=== PATIENT | female | born 1950 | race Caucasian/White ===

== ENCOUNTER 2019-09-08 21:56 | Emergency (ER) | payer OTHER ==
[~2019-09-08] VITALS: Ht 170.2 cm; Wt 95.3 kg
[2019-09-08 21:59] VITALS: BP 198/93
[2019-09-08] MEDS ORDERED: VALTREX1000 MG PO (22:21)
[2019-09-08] MEDS ORDERED: ULTRAM 50MG TAB50 MG PO (22:23)
== END 2019-09-08 22:35 | disposition home or self-care (01) ==
LOC: ER 21:56
DX: B02.9 Zoster without complications (principal); I10 Essential (primary) hypertension; E11.9 Type 2 diabetes mellitus without complications

== ENCOUNTER 2019-10-17 16:18 | Emergency (ER) | payer OTHER ==
[~2019-10-17] VITALS: Ht 170.2 cm; Wt 98.4 kg
[~2019-10-17 16:18] MED LIST: ULTRAM 50MG TAB50 MG PO; VALTREX1000 MG PO
[2019-10-17] MEDS ORDERED: IBUPROFEN 600600 M1 PO (17:02)
[2019-10-17] MEDS ORDERED: ULTRAM 50MG TAB50 MG PO (17:02)
[2019-10-17] MEDS ORDERED: NORFLEX100 MG PO (17:02)
[2019-10-17] MEDS ORDERED: MEDROLDOSEPACK PO (17:02)
[2019-10-17 18:00] VITALS: BP 185/85
== END 2019-10-17 18:02 | disposition home or self-care (01) ==
LOC: ER 16:18
DX: S46.811A Strain of other muscles, fascia and tendons at shoulder and upper arm level, right arm, initial encounter (principal); I10 Essential (primary) hypertension; E11.9 Type 2 diabetes mellitus without complications; X58.XXXA Exposure to other specified factors, initial encounter; Y93.89 Activity, other specified; Y92.89 Other specified places as the place of occurrence of the external cause; Y99.8 Other external cause status

== ENCOUNTER 2020-11-08 06:18 | Emergency (ER) | payer OTHER ==
[~2020-11-08] VITALS: Ht 170.2 cm; Wt 95.3 kg
[~2020-11-08 06:18] MED LIST changes: +IBUPROFEN 600600 M1 PO; +MEDROLDOSEPACK PO; +NORFLEX100 MG PO
[2020-11-08] MEDS ORDERED: TELMISARTAN40 MG PO (06:37)
[2020-11-08] MEDS ORDERED: AMLODIPINE BESY10 MG PO (06:37)
[2020-11-08] MEDS ORDERED: ATENOLOL 50MG T50 M1 PO (06:37)
[2020-11-08] MEDS ORDERED: HYDROCHLOROTH12.5 M2 PO (06:38)
[2020-11-08 06:43] LABS: ABSOLUTE NEUTROPHILS 3.3 thou/uL (1.4-8.2); BASOPHILS 0.3 % (0.0-2.0); EOSINOPHILS 0.1 % (0.0-3.0); HEMATOCRIT 39.7 % (37.0-47.0); HEMOGLOBIN 12.9 gm/dL (12.0-15.0); MCH 28.6 pg (26.0-34.0); MCHC 32.6 g/dL (28.0-37.0); MCV 87.6 fL (80.0-100.0); MONOCYTES 9.5 % (1.0-8.0); PLATELET COUNT 108 thou/uL (150-400); POLYS 76.1 % (36.0-66.0); RBC 4.53 mil/uL (4.20-5.00); RDW 14.2 % (10.5-14.5); WBC 4.3 thou/uL (4.0-11.0)
[2020-11-08 07:00] LABS: ALBUMIN 3.7 g/dL (3.4-5.0); TOTAL BILIRUBIN 1.2 mg/dL (0.2-1.0); TOTAL PROTEIN 7.8 g/dL (6.4-8.2)
[2020-11-08 07:03] LABS: POTASSIUM 2.8 mmol/L (3.5-5.1)
--- NOTE | 2020-11-08 07:25 | EKG ---
[address] [address] ELECTROCARDIOGRAM REPORT Name: TIANNA CARRERA Room #: PRE M.R.#: [id number] Admission: Attend Phys: Discharge: Date of : 54 Report #: [id number] [facility] ED Test Date: 2020-11-08 Test Time: 06:26:48 Pat Name: TIANNA CARRERA Department: Room: Gender: F Access Clerk: ERIN : 1950 Requested By: Luca Salazar Order Number: [id number] MD: Nghia Jaimes Measurements Intervals [place] Rate: 73 P: 52 AL: 171 QRS: -41 QRSD: 98 T: -9 QT: 394 QTc: 435 Interpretive Statements Sinus rhythm Probable left atrial enlargement Left axis deviation Nonspecific T abnrm, anterolateral leads No previous ECG available for comparison Electronically Signed On 11-08-2020 7:25:29 BOTTOM TURNING LATHE TENDER by Nghia Jaimes [email or web address] <ELECTRONICALLY SIGNED> By: Nghia Jaimes MD, [facility] 11/08/2025 5 5 Nghia Jaimes MD, FACC /EPI
[2020-11-08] MEDS ORDERED: PROAIR HFA8.5 GM INH (07:30)
[2020-11-08] MEDS ORDERED: ZPAK PO (07:30)
[2020-11-08 09:59] VITALS: BP 164/78
== END 2020-11-08 10:05 | disposition home or self-care (01) ==
LOC: ER 06:18
PROVIDERS: Emergency Medicine
DX: U07.1 COVID-19 (principal); E87.6 Hypokalemia; I10 Essential (primary) hypertension; E11.9 Type 2 diabetes mellitus without complications; Z79.899 Other long term (current) drug therapy

== ENCOUNTER 2020-11-10 20:14 | Inpatient (IN) | payer OTHER ==
[~2020-11-10] VITALS: Ht 170.2 cm; Wt 95.3 kg
[~2020-11-10 20:14] MED LIST changes: +AMLODIPINE BESY10 MG PO; +ATENOLOL 50MG T50 M1 PO; +HYDROCHLOROTH12.5 M2 PO; +PROAIR HFA8.5 GM INH; +TELMISARTAN40 MG PO; +ZPAK PO
[2020-11-10 20:48] VITALS: BP 117/95; BP 177/95
[2020-11-10 21:47] LABS: ABSOLUTE NEUTROPHILS 4.1 thou/uL (1.4-8.2); BASOPHILS 0.8 % (0.0-2.0); HEMATOCRIT 39.4 % (37.0-47.0); HEMOGLOBIN 12.8 gm/dL (12.0-15.0); LYMPHOCYTES 7.4 % (24.0-44.0); MCH 28.5 pg (26.0-34.0); MCHC 32.5 g/dL (28.0-37.0); MCV 87.7 fL (80.0-100.0); MONOCYTES 4.1 % (1.0-8.0); PLATELET COUNT 119 thou/uL (150-400); POLYS 87.7 % (36.0-66.0); RBC 4.49 mil/uL (4.20-5.00); RDW 14.6 % (10.5-14.5); WBC 4.6 thou/uL (4.0-11.0)
[2020-11-10 22:06] LABS: ALBUMIN 3.3 g/dL (3.4-5.0); ANION GAP 6 mmol/L (7-16); BUN 10 mg/dL (7-18); CHLORIDE 96 mmol/L (98-107); CO2 32 mmol/L (21-32); CREATININE 0.9 mg/dL (0.6-1.0); GLUCOSE 127 mg/dL (74-106); SGOT 38 U/L (15-37); SGPT 33 U/L (30-65); SODIUM 134 mmol/L (136-145); TOTAL PROTEIN 7.3 g/dL (6.4-8.2); TROPONIN-I <0.06 ng/mL (<0.06)
[2020-11-10 22:07] LABS: POTASSIUM 2.8 mmol/L (3.5-5.1)
[2020-11-10 23:10] VITALS: BP 158/73
[2020-11-10 23:27] LABS: URINE BILIRUBIN NEGATIVE (Negative); URINE BLOOD NEGATIVE (Negative); URINE CLARITY CLEAR; URINE COLOR YELLOW; URINE GLUCOSE-RANDOM* NEGATIVE (Negative); URINE KETONES NEGATIVE (Negative); URINE LEUKOCYTES-REFLEX NEGATIVE (Negative); URINE NITRITE-REFLEX NEGATIVE (Negative); URINE PROTEIN (DIPSTICK) TRACE (Negative); URINE SPECIFIC GRAVITY 1.015 (1.005-1.035); URINE UROBILINOGEN 0.2 E.U./dl (0.2-1.0)
[2020-11-10 23:46] VITALS: BP 136/78
[2020-11-11 00:01] VITALS: BP 131/89
[2020-11-11] MEDS ORDERED: LIPITOR40 MG PO (00:47)
[2020-11-11 03:51] VITALS: BP 126/76
[2020-11-11 07:36] VITALS: BP 144/87
[2020-11-11 10:35] LABS: CALCIUM 8.7 mg/dL (8.5-10.1); CREATININE 1.1 mg/dL (0.6-1.0); POTASSIUM 3.9 mmol/L (3.5-5.1)
[2020-11-11 10:57] LABS: HEMATOCRIT 38.2 % (37.0-47.0); HEMOGLOBIN 12.4 gm/dL (12.0-15.0); MCH 28.7 pg (26.0-34.0); MCHC 32.4 g/dL (28.0-37.0); MCV 88.5 fL (80.0-100.0); RBC 4.31 mil/uL (4.20-5.00); RDW 14.3 % (10.5-14.5); WBC 5.2 thou/uL (4.0-11.0)
[2020-11-11 12:04] VITALS: BP 132/86
[2020-11-11 16:19] VITALS: BP 143/75
[2020-11-11 19:55] VITALS: BP 128/61
[2020-11-12 04:45] VITALS: BP 147/84
[2020-11-12 05:32] LABS: BASOPHILS 0.1 % (0.0-2.0); HEMATOCRIT 38.8 % (37.0-47.0); HEMOGLOBIN 12.7 gm/dL (12.0-15.0); LYMPHOCYTES 5.6 % (24.0-44.0); MCH 28.7 pg (26.0-34.0); MCHC 32.7 g/dL (28.0-37.0); MCV 87.8 fL (80.0-100.0); MONOCYTES 3.8 % (1.0-8.0); PLATELET COUNT 143 thou/uL (150-400); POLYS 90.5 % (36.0-66.0); RBC 4.42 mil/uL (4.20-5.00); RDW 14.3 % (10.5-14.5); WBC 7.7 thou/uL (4.0-11.0)
[2020-11-12 05:44] LABS: FIBRINOGEN 389.2 mg/dL (210-360); INR 1.1; PROTIME 10.8 Seconds (9.3-11.4)
[2020-11-12 05:54] LABS: CALCIUM 9.4 mg/dL (8.5-10.1); CREATININE 1.1 mg/dL (0.6-1.0); TOTAL BILIRUBIN 0.6 mg/dL (0.2-1.0); TOTAL PROTEIN 7.3 g/dL (6.4-8.2)
[2020-11-12 06:00] LABS: POTASSIUM 2.9 mmol/L (3.5-5.1)
--- NOTE | 2020-11-12 07:26 | EKG ---
[address] [address] ELECTROCARDIOGRAM REPORT Name: TIANNA CARRERA Room #: 355-P ADM IN M.R.#: [id number] Admission: 11/10/20 Attend Phys: Camilo Mora MD Discharge: Date of : 54 Report #: [id number] [facility] ED Test Date: 2020-11-10 Test Time: 21:22:41 Pat Name: TIANNA CARRERA Department: Room: [facility] Gender: F Heel Seat Laster: : 1950 Requested By: Rashid Shrestha Order Number: [id number] MD: Nghia Jaimes Measurements Intervals [place] Rate: 80 P: 38 [place]: 152 QRS: -46 QRSD: 92 T: -19 QT: 369 QTc: 426 Interpretive Statements Sinus rhythm LAD, consider left anterior fascicular block Probable left ventricular hypertrophy Borderline T abnormalities, diffuse leads Compared to ECG 11/08/2020 06:26:48 T-wave abnormality now present Left-axis deviation no longer present Electronically Signed On 11-12-2020 7:25:49 INSTALLATION ENGINEER by Nghia Jaimes [email or web address] <ELECTRONICALLY SIGNED> By: Nghia Jaimes MD, FAC 11/12/20724 21 21 Nghia Jaimes MD, [facility] /EPI
[2020-11-12 11:40] VITALS: BP 157/83
[2020-11-12 16:17] VITALS: BP 149/83
[2020-11-12 19:46] VITALS: BP 137/73
[2020-11-13 05:44] VITALS: BP 120/68
[2020-11-13 06:40] LABS: ABSOLUTE NEUTROPHILS 10.9 thou/uL (1.4-8.2); HEMATOCRIT 40.4 % (37.0-47.0); HEMOGLOBIN 12.9 gm/dL (12.0-15.0); LYMPHOCYTES 3.4 % (24.0-44.0); MCH 28.4 pg (26.0-34.0); MCHC 32.1 g/dL (28.0-37.0); MCV 88.5 fL (80.0-100.0); MONOCYTES 1.9 % (1.0-8.0); PLATELET COUNT 186 thou/uL (150-400); POLYS 94.7 % (36.0-66.0); RBC 4.56 mil/uL (4.20-5.00); RDW 14.4 % (10.5-14.5); WBC 11.5 thou/uL (4.0-11.0)
[2020-11-13 06:53] LABS: ALBUMIN 2.9 g/dL (3.4-5.0); CALCIUM 9.6 mg/dL (8.5-10.1); CREATININE 1.4 mg/dL (0.6-1.0); POTASSIUM 3.4 mmol/L (3.5-5.1); TOTAL BILIRUBIN 0.7 mg/dL (0.2-1.0); TOTAL PROTEIN 7.8 g/dL (6.4-8.2)
[2020-11-13 15:16] VITALS: BP 127/73
[2020-11-13 19:39] VITALS: BP 138/66
[2020-11-14 02:54] VITALS: BP 130/75
[2020-11-14 07:43] VITALS: BP 147/76
[2020-11-14 10:15] LABS: ALBUMIN 2.8 g/dL (3.4-5.0); CALCIUM 9.5 mg/dL (8.5-10.1); CREATININE 1.2 mg/dL (0.6-1.0); DIRECT BILIRUBIN 0.3 mg/dL (<0.1-0.2); PHOSPHORUS 4.2 mg/dL (2.5-4.9); TOTAL BILIRUBIN 0.6 mg/dL (0.2-1.0); TOTAL PROTEIN 6.7 g/dL (6.4-8.2)
[2020-11-14 15:21] VITALS: BP 137/83
[2020-11-14 20:06] VITALS: BP 145/85
[2020-11-15 06:41] LABS: ALBUMIN 2.5 g/dL (3.4-5.0); CALCIUM 9.4 mg/dL (8.5-10.1); DIRECT BILIRUBIN 0.2 mg/dL (<0.1-0.2); PHOSPHORUS 3.5 mg/dL (2.5-4.9); POTASSIUM 3.7 mmol/L (3.5-5.1); TOTAL BILIRUBIN 0.6 mg/dL (0.2-1.0); TOTAL PROTEIN 6.9 g/dL (6.4-8.2)
[2020-11-15 08:55] VITALS: BP 147/76
[2020-11-15 17:38] VITALS: BP 146/84
[2020-11-15 19:57] VITALS: BP 156/76
[2020-11-16 04:03] VITALS: BP 155/77
[2020-11-16 04:48] LABS: ALBUMIN 2.7 g/dL (3.4-5.0); CALCIUM 9.5 mg/dL (8.5-10.1); CREATININE 1.2 mg/dL (0.6-1.0); DIRECT BILIRUBIN 0.3 mg/dL (<0.1-0.2); TOTAL BILIRUBIN 0.7 mg/dL (0.2-1.0); TOTAL PROTEIN 6.4 g/dL (6.4-8.2)
[2020-11-16 07:59] VITALS: BP 148/90
[2020-11-16 14:13] VITALS: BP 148/90
[2020-11-16 15:44] VITALS: BP 166/98
[2020-11-16 20:00] VITALS: BP 157/80
[2020-11-17 04:58] VITALS: BP 141/83
[2020-11-17 07:17] VITALS: BP 138/70
[2020-11-17 15:16] VITALS: BP 143/84
[2020-11-17 20:24] VITALS: BP 146/78
[2020-11-18 04:31] LABS: ABSOLUTE NEUTROPHILS 7.3 thou/uL (1.4-8.2); HEMATOCRIT 38.6 % (37.0-47.0); HEMOGLOBIN 12.7 gm/dL (12.0-15.0); LYMPHOCYTES 5.4 % (24.0-44.0); MCH 28.7 pg (26.0-34.0); MCHC 32.8 g/dL (28.0-37.0); MCV 87.5 fL (80.0-100.0); MONOCYTES 3.1 % (1.0-8.0); PLATELET COUNT 236 thou/uL (150-400); POLYS 91.5 % (36.0-66.0); RBC 4.42 mil/uL (4.20-5.00); RDW 14.1 % (10.5-14.5); WBC 7.9 thou/uL (4.0-11.0)
[2020-11-18 04:34] VITALS: BP 122/62
[2020-11-18 04:54] LABS: ALBUMIN 2.4 g/dL (3.4-5.0); CALCIUM 9.3 mg/dL (8.5-10.1); CREATININE 1.2 mg/dL (0.6-1.0); MAGNESIUM 2.2 mg/dL (1.8-2.4); POTASSIUM 4.2 mmol/L (3.5-5.1); TOTAL BILIRUBIN 0.5 mg/dL (0.2-1.0); TOTAL PROTEIN 6.2 g/dL (6.4-8.2)
[2020-11-18 07:30] VITALS: BP 167/87
[2020-11-18 17:38] VITALS: BP 146/76
[2020-11-18 22:35] VITALS: BP 155/74
[2020-11-19 04:03] VITALS: BP 125/68
[2020-11-19 07:33] VITALS: BP 124/67
[2020-11-19 15:07] VITALS: BP 142/74
[2020-11-19 16:46] VITALS: BP 148/90
[2020-11-19 19:48] VITALS: BP 146/76
[2020-11-20 03:55] VITALS: BP 132/61
[2020-11-20 07:35] VITALS: BP 140/70
[2020-11-20 15:20] VITALS: BP 121/66
[2020-11-20 19:24] VITALS: BP 149/75
[2020-11-21 01:06] LABS: GLYCOHEMOGLOBIN (HGB A1C) 7.2 % (4.8-5.6)
[2020-11-21 03:43] VITALS: BP 127/66
[2020-11-21 07:36] VITALS: BP 137/75
[2020-11-21 10:51] VITALS: BP 148/90
[2020-11-21 15:24] VITALS: BP 121/69
[2020-11-21 19:31] VITALS: BP 146/77
[2020-11-22 04:30] VITALS: BP 112/68
[2020-11-22 07:38] VITALS: BP 129/79
[2020-11-22] MEDS ORDERED: PREDNISONE 20 M20 MG PO (11:00)
[2020-11-22] MEDS ORDERED: VITAMIN D325 MC1 PO (11:00)
[2020-11-22] MEDS ORDERED: ACIDOPHILUS1 EAC4 PO (11:00)
[2020-11-22] MEDS ORDERED: TESSALON PERLE100 MG PO (11:00)
[2020-11-22] MEDS ORDERED: VITAMIN C1000 MG PO (11:00)
[2020-11-22] MEDS ORDERED: IPRAT-ALBUT 0.5-3 ML INH (11:00)
[2020-11-22] MEDS ORDERED: TRAZODONE HCL50 MG PO (11:00)
[2020-11-22] MEDS ORDERED: ZINC SULFATE 2220 MG PO (11:00)
[2020-11-22] MEDS ORDERED: VITAMIN B-1100 M2 PO (11:00)
[2020-11-22] MEDS ORDERED: PEPCID20 MG PO (11:00)
[2020-11-22 12:14] VITALS: BP 129/79
[2020-11-22 12:17] VITALS: BP 148/90
== END 2020-11-22 14:15 | disposition home health service (06) | DRG 177 ==
LOC: ER 20:14 → EROBS 23:04 → 3W 23:04
PROVIDERS: Internal Medicine; Nurse Practitioner Family; Physician Assistant; Specialist; ADMIT Hospitalist; ATTEND Hospitalist
PROC: XW033E5 Introduction of Remdesivir Anti-infective into Peripheral Vein, Percutaneous Approach, New Technology Group 5 (ICD-10-PCS; 2020-11-12)
PROC: 5A0935A Assistance with Respiratory Ventilation, Less than 24 Consecutive Hours, High Flow/Velocity Cannula (ICD-10-PCS; principal; 2020-11-17)
DX: U07.1 COVID-19 (principal); J96.01 Acute respiratory failure with hypoxia; R65.11 Systemic inflammatory response syndrome (SIRS) of non-infectious origin with acute organ dysfunction; J12.82 Pneumonia due to coronavirus disease 2019; N17.9 Acute kidney failure, unspecified; E46 Unspecified protein-calorie malnutrition; J98.11 Atelectasis; D69.6 Thrombocytopenia, unspecified; I10 Essential (primary) hypertension; E11.9 Type 2 diabetes mellitus without complications; E87.6 Hypokalemia; E78.5 Hyperlipidemia, unspecified; Z68.32 Body mass index [BMI] 32.0-32.9, adult; Z79.899 Other long term (current) drug therapy
CPT/HCPCS: 10779; 10879

== ENCOUNTER → 2020-12-03 | Outpatient (CLI) | payer OTHER ==
[~2020-12-03] MED LIST changes: +ACIDOPHILUS1 EAC4 PO; +IPRAT-ALBUT 0.5-3 ML INH; +LIPITOR40 MG PO; +PEPCID20 MG PO; +PREDNISONE 20 M20 MG PO; +TESSALON PERLE100 MG PO; +TRAZODONE HCL50 MG PO; +VITAMIN B-1100 M2 PO; +VITAMIN C1000 MG PO; +VITAMIN D325 MC1 PO; +ZINC SULFATE 2220 MG PO
== END ==
LOC: ULTRA 15:39
PROVIDERS: ATTEND Neuromusculoskeletal Medicine & OMM
DX: R60.0 Localized edema (principal)

== ENCOUNTER 2020-12-11 19:28 | Inpatient (IN) | payer OTHER ==
[~2020-12-11] VITALS: Ht 172.7 cm; Wt 90.7 kg
[2020-12-11 19:31] VITALS: BP 163/83
[2020-12-11 20:04] LABS: ABSOLUTE NEUTROPHILS 1.8 thou/uL (1.4-8.2); EOSINOPHILS 1.6 % (0.0-3.0); HEMATOCRIT 36.4 % (37.0-47.0); HEMOGLOBIN 11.9 gm/dL (12.0-15.0); LYMPHOCYTES 25.2 % (24.0-44.0); MCHC 32.8 g/dL (28.0-37.0); MCV 88.5 fL (80.0-100.0); MONOCYTES 14.8 % (1.0-8.0); PLATELET COUNT 206 thou/uL (150-400); POLYS 57.4 % (36.0-66.0); RBC 4.11 mil/uL (4.20-5.00); RDW 15.8 % (10.5-14.5); WBC 3.1 thou/uL (4.0-11.0)
[2020-12-11 20:24] LABS: ALBUMIN 3.3 g/dL (3.4-5.0); ANION GAP 7 mmol/L (7-16); BUN 9 mg/dL (7-18); CALCIUM 9.3 mg/dL (8.5-10.1); CHLORIDE 100 mmol/L (98-107); CO2 32 mmol/L (21-32); CREATININE 1.1 mg/dL (0.6-1.0); GLUCOSE 124 mg/dL (74-106); SGOT 17 U/L (15-37); SGPT 17 U/L (30-65); SODIUM 139 mmol/L (136-145); TOTAL BILIRUBIN 1.3 mg/dL (0.2-1.0); TOTAL PROTEIN 7.1 g/dL (6.4-8.2); TROPONIN-I <0.06 ng/mL (<0.06)
[2020-12-11 20:25] LABS: POTASSIUM 2.5 mmol/L (3.5-5.1)
[2020-12-11] MEDS ORDERED: HYDROCHLOROTHIA25 M1 PO (20:42)
[2020-12-11] MEDS ORDERED: METFORMIN HCL500 M3 PO (21:26)
[2020-12-11 22:20] VITALS: BP 159/79
[2020-12-11 22:50] VITALS: BP 161/59
[2020-12-11 22:57] VITALS: BP 155/85
[2020-12-11 23:04] LABS: PROTIME 11.3 Seconds (9.3-11.4)
[2020-12-12] MEDS ORDERED: NORVASC10 MG PO (01:08)
--- NOTE | 2020-12-12 01:12 | NUR ---
PT PRESENTED FROM HOME TO ED. PT CALLED 911 CONTINUED AND INCREASED SOA. LOW SATURATION ON ROOM AIR NOTED BY EMS. PT PREVIOUSLY AT [facility] FOR COVID DCD ON 11/22. PT DID SEE PCP ON 12/03 TO R/O DVT WHICH WAS NEGATIVE. . CT TODAY SHOWED POSITIVE PE, DDIMER ELEVATED. HEPARIN DRIP INITIATED, POTTASIUM PROVIDED IV. PT STATED SHE TAKES HCTZ AND HAS HAD LOOSE STOOL AT HOME, TAKES TAJIK VICKERS A LAXATIVE. METFORMIN ON HOLD DUE TO CONTRAST FOR 48HRS. SOA AND INCREASE COUGHING WHEN AMBULATING. STEADY GAIT. PRN O2 FOR COMFORT. PT VERBALIZED CALLING FOR ASSISTANCE WHEN NEEDED FOR ADLS OR AMBULATION.
--- NOTE | 2020-12-12 01:35 | NUR ---
PT REPORTING EPISODES OF INCREASED SOA, NOT ABLE TO IDENTIFY TRIGGERS TO INCREASE IN SOA, SUCH COUGHING, AMBULATING. STATED SHE IS THINKING ABOUT THE BLOOD CLOTS AND GETTING NERVOUS. ASKED IF PROVIDER COULD BE CALLED FOR PRN. PROVIDER PAGED.
[2020-12-12 05:38] LABS: HEMATOCRIT 36.7 % (37.0-47.0); HEMOGLOBIN 12.1 gm/dL (12.0-15.0); MCHC 32.9 g/dL (28.0-37.0); MCV 88.4 fL (80.0-100.0); RBC 4.15 mil/uL (4.20-5.00); RDW 15.6 % (10.5-14.5); WBC 3.4 thou/uL (4.0-11.0)
[2020-12-12 05:58] VITALS: BP 139/82
[2020-12-12 05:59] LABS: ALBUMIN 3.2 g/dL (3.4-5.0); POTASSIUM 3.4 mmol/L (3.5-5.1)
--- NOTE | 2020-12-12 07:15 | EKG ---
[place] [address] [facility] [place] [address] ELECTROCARDIOGRAM REPORT Name: TIANNA CARRERA Room #: 353-P ADM IN M.R.#: [id number] Admission: 12/11/20 Attend Phys: Joseph Thurman MD Discharge: Date of : 54 Report #: [id number] [facility] ED Test Date: 2020-12-11 Test Time: 19:52:04 Pat Name: TIANNA CARRERA Department: Room: [facility] Gender: F Nonprofit Financial Controller: tbarnes2 : 1950 Requested By: Anastasiia Shah Order Number: [id number] MD: Nghia Jaimes Measurements Intervals [place] Rate: 78 P: 48 [place]: 156 QRS: -30 QRSD: 91 T: -21 QT: 387 QTc: 441 Interpretive Statements Sinus rhythm Left ventricular hypertrophy Borderline T abnormalities, diffuse leads Compared to ECG 11/10/2020 21:22:41 No significant changes Electronically Signed On 12-12-2020 7:14:50 PUNCH CARD OPERATOR by Nghia Jaimes [email or web address] <ELECTRONICALLY SIGNED> By: Nghia Jaimes MD, [facility] 12/12/20713 51 51 Nghia Jaimes MD, FACC /EPI
[2020-12-12] MEDS ORDERED: ELIQUIS5 M1 PO (10:41)
[2020-12-12 11:49] VITALS: BP 143/92
[2020-12-12 12:34] VITALS: BP 143/92
--- NOTE | 2020-12-12 14:10 | NUR ---
INITIAL ASSESSMENT/DISCHARGE NOTE: Received consult. EVELIA reviewed chart and spoke with nursing and attending physician. Pt was admitted from home due to PE. Pt placed in Enhanced Isolation. Pt had positive COVID test on 11/08/2020. Pt was discharge home from [facility] on 11/22 with home O2 [facility]. Pt to be started on Eliquis and will discharge home later today. EVELIA spoke with pt via phone. Introduced role of SW. Pt is alert/orientated x 4. Pt lives at home with her mother and is normally independent with ADLs. Pt is currently on service with HH and will resume HH when discharged home. Pt's PCP is Dr. Jacky Alfaro at [facility]. EVELIA discussed new prescription for Eliquis. Pt is aware and states that she uses the [facility] on [address] in [place]. EVELIA placed call to the [facility] to check coverage for Eliquis. Pt has a $8.40 copay for the starter kit, which will be ordered today and available for pt to scrap picker tomorrow around 1300. EVELIA provided Eliquis prescription discount cards to pt's nurse for pt to take to her pharmacy. EVELIA faxed info and [facility] summary/[facility]. Confirmed info was received with to contact pt to resume services. Contact info for HH placed in pt's discharge summary. Pt's family will be able to provide transportation home. No additioal EVELIA needs identified at this time, but is available to assist should needs arise.
[2020-12-12] MEDS ORDERED: KLOR-CON M2020 MEQ PO (14:48)
[2020-12-12 15:02] VITALS: BP 143/92
[2020-12-12 15:09] VITALS: BP 141/82
--- NOTE | 2020-12-12 16:36 | NUR ---
assumed care of pt at 0700. pt aox4 in no acute distress. maintains spo2 on room air. soa w/ activity. heparin gtt d/c'd per physician - to start on eliquis bid. ok to discharge per physician after second dose given early per physician request. wcm.
--- NOTE | 2020-12-13 08:03 | HC ---
[facility] [place] [address] CONSULTATION Name: TIANNA CARRERA Room #: 353-P [facility] IN M.R.#: [id number] Admission: 12/11/20 Attend Phys: Joseph Thurman MD Discharge: 12/12/20 Date of : 54 Report #: [id number] THIS REPORT FOR: cc: Germán Vo,Diallo Gusman MD ~ HISTORY OF PRESENT ILLNESS: The patient is a very pleasant 70-year-old female from the [facility] area, who was found to be COVID positive in 11/09, was admitted on 11/10 for COVID pneumonia, received appropriate therapy and then went home on 11/22. She reports that she has had some chronic leg swelling for 50 years, might have been slightly worse, but she notes more dyspnea about a day or two before her admission yesterday. Here at the hospital, her CAT scan showed what appears to be several small secondary branch right lower lobe pulmonary emboli. She is currently receiving heparin. She denies any recent trauma cellulitis use of hormones, prolonged immobility other than the recent hospital stay. Her family history appears to be negative for clotting, though she has a brother who has likely had some type of vascular difficulty about age 50, but she also had been a smoker in the past. At this time, the patient denies headache. Has had what she describes as some mild dizziness, also sounds like she has had some dyspnea or shortness of air since perhaps August or September of 2020. No mouth sores. Does have occasional blood-tinged from when she blows her nose. No hearing difficulties. No swallowing difficulties. No breast masses, no nipple discharge, no coughing up of blood, no change in bowel habits. Sounds like she has had some loose bowels for about 3 or 4 days, had not had before. No blood in her urine or stool. No dysuria. No skin rash. Does have the chronic swelling of her ankles and feet up to about 2/3 up on her calves. Weight is maybe down 10 pounds, but she is not sure if she has weighed herself recently, but her cloths are maybe a little bit looser in the last month or 2 since she got out of the hospital, has not quite back to eating well yet. FAMILY HISTORY: No one else with clots per se. SOCIAL HISTORY: Retired, used to work as a trust manager at a [employer]. Nonsmoker, nondrinker, no street drugs. Does have a 2.5 year old Zarina Tzu dog at home and that is her entry level assistant manager. MEDICATIONS: At this time, in the hospital currently include apixaban 5 mg b.i.d., Zosyn 3.375 grams IV q. 8 hours, levofloxacin q. 24, atorvastatin calcium 40 mg at bedtime, amlodipine 10 daily, lactobacillus 1 cap daily, vitamin D 2000 units daily, vitamin C 500 mg daily, thiamine 100 mg daily, famotidine 20 b.i.d., zinc sulfate 220 mg daily, atenolol 50 daily, guaifenesin 1200 b.i.d., insulin on a sliding scale, ipratropium and albuterol respiratory therapies q. 4, IV fluids, trazodone 50 mg at bedtime p.r.n., dexamethasone 6 mg daily IV, magnesium and other electrolyte replacement protocol drugs available, MiraLax p.r.n. Note that she is beginning apixaban 10 b.i.d. for the first 14 doses, but I am not sure that actually is started yet. [facility] [address] [place] [address] CONSULTATION Name: TIANNA CARRERA Room #: 353-P [facility] IN Willy#: [id number] Admission: 12/11/20 Attend Phys: Joseph Thurman MD Discharge: 12/12/20 Date of : 54 Report #: [id number] PHYSICAL EXAMINATION: GENERAL: The patient appears her stated age. VITAL SIGNS: Height is 5 feet 8 inches 172.7 ___, weight is 200 pounds or 90.8 kilograms. Blood pressure 139/82, O2 sat 99%, respirations 20, pulse 74, temperature 98. MOOD: She is alert, pleasant, conversant. NEUROLOGIC: Speech and thought pattern normal. Moving extremities appropriately. LUNGS: Mostly clear, may be some very soft rhonchi centrally that clear. HEART: Regular rate. LYMPHATICS: No enlarged lymph nodes in the supraclavicular, cervical, axillary or inguinal region. ABDOMEN: Slightly obese. No masses. EXTREMITIES: He does have some mild chronic-appearing lymphedema as the skin is stretched, not taut up to about 2/[address] up the calf. LABORATORY DATA: Shows BUN of 8, creatinine 1.0. Recent liver functions normal including AST, total bilirubin is normal at 1.0, alkaline phosphatase 58, SGPT 17, albumin 3.2, LDH had been 282 back in November. Recent baseline INR had been 1.0. No baseline APTT drawn before beginning of heparin. D-dimer on admit elevated at 4.58. White count 3.4, hemoglobin 12.1, MCV 88.4, platelets 206. Differential nonacute. Ferritin back in November was elevated at 650. CAT scan report describes filling defects within the right pulmonary artery secondary branches are present, most notable in the right lower lobe, partially occlusive. There is no central pulmonary embolism or left-sided pulmonary arterial filling defect. Heart size is mildly enlarged with no pericardial effusion. No acute thoracic osseous abnormality. Patchy ground glass opacities in both lungs peripherally, greatest in the lower lobes and lingula. The patient also had ultrasound of lower extremity done as an outpatient on the 12/03 that was normal. Repeat test is pending. ASSESSMENT AND PLAN: 1. Right-sided lower pulmonary emboli in the secondary branches. We would most likely consider this provoked related to recent COVID pneumonia and hypercoagulability. Note that factor V Leiden, protein C and protein S are pending. The patient should probably receive at least 6 months of anticoagulation. We would then consider checking after 2 days off therapy of DRVVT, hexagonal phase phospholipid, cardiolipin antibodies and beta 2 glycoprotein [address] the patient back on anticoagulant while awaiting those results. If they are unremarkable, then one can probably consider that the safest approach will be stopping anticoagulant and observe. If she has abnormality on her tests, then they will need to be repeated 3 months later after additional anticoagulation to see if they are persistently positive. We will also await results of upper and lower extremity venous Dopplers. [address] [address] CONSULTATION Name: TIANNA CARRERA Room #: 353-P DIS IN M.R.#: [id number] Admission: 12/11/20 Attend Phys: Joseph Thurman MD Discharge: 12/12/20 Date of : 54 Report #: [id number] 2. Dyspnea preceding COVID pneumonia. We will ask Pulmonary to see the patient more for outpatient followup to see if additional testing is warranted. 3. Chronic lower extremity swelling for 50+ years. Consider outpatient consult with the lymphedema therapist for help with management. 4. Recent history of COVID pneumonia. Defer management to others. 5. Diabetes type 2. Management per others. 6. Hypertension. Management per others. 7. Hyperlipidemia. Management per others. 8. Obesity. Encouraged weight loss. 9. Chart report of shingles. Management per others. Does not appear to be symptomatic at this time. 10. Chart history of brachial plexus neuropathy. Defer management to others. We will follow with you. <ELECTRONICALLY SIGNED> By: Diallo Swann MD 12/13/20 0803 [id number] Diallo Swann MD /nt
== END 2020-12-12 19:25 | disposition home health service (06) | DRG 175 ==
LOC: ER 19:28 → 3W 22:11 → EROBS 22:11 → 3W 22:41
PROVIDERS: Emergency Medicine; Nurse Practitioner Family; ADMIT Hospitalist; ATTEND Hospitalist
DX: I26.99 Other pulmonary embolism without acute cor pulmonale (principal); J12.82 Pneumonia due to coronavirus disease 2019; U07.1 COVID-19; R65.10 Systemic inflammatory response syndrome (SIRS) of non-infectious origin without acute organ dysfunction; I10 Essential (primary) hypertension; E87.6 Hypokalemia; E78.5 Hyperlipidemia, unspecified; I89.0 Lymphedema, not elsewhere classified; E66.9 Obesity, unspecified; E11.9 Type 2 diabetes mellitus without complications; B02.9 Zoster without complications; G54.0 Brachial plexus disorders; Z79.4 Long term (current) use of insulin; Z86.16 Personal history of COVID-19; Z88.8 Allergy status to other drugs, medicaments and biological substances; Z68.30 Body mass index [BMI] 30.0-30.9, adult
CPT/HCPCS: 10879

== ENCOUNTER → 2020-12-21 | Outpatient (CLI) | payer OTHER ==
[~2020-12-21] MED LIST changes: +ELIQUIS5 M1 PO; +HYDROCHLOROTHIA25 M1 PO; +KLOR-CON M2020 MEQ PO; +METFORMIN HCL500 M3 PO; +NORVASC10 MG PO
== END ==
LOC: SJCVC 12:45
PROVIDERS: ATTEND Internal Medicine
DX: E78.00 Pure hypercholesterolemia, unspecified (principal); I10 Essential (primary) hypertension; E11.9 Type 2 diabetes mellitus without complications; E78.5 Hyperlipidemia, unspecified; Z86.73 Personal history of transient ischemic attack (TIA), and cerebral infarction without residual deficits; Z88.1 Allergy status to other antibiotic agents; Z79.899 Other long term (current) drug therapy; Z79.84 Long term (current) use of oral hypoglycemic drugs

== ENCOUNTER → 2020-12-24 | Outpatient (CLI) | payer OTHER | LOC: SJCVCIMAG 07:18 | PROVIDERS: ATTEND Internal Medicine | DX: I08.1 Rheumatic disorders of both mitral and tricuspid valves (principal); I11.9 Hypertensive heart disease without heart failure; R06.00 Dyspnea, unspecified; E11.9 Type 2 diabetes mellitus without complications; E78.5 Hyperlipidemia, unspecified; R00.2 Palpitations; K21.9 Gastro-esophageal reflux disease without esophagitis; Z86.16 Personal history of COVID-19; Z86.711 Personal history of pulmonary embolism; Z88.1 Allergy status to other antibiotic agents; Z79.899 Other long term (current) drug therapy ==

== ENCOUNTER → 2021-03-05 | Outpatient (CLI) | payer OTHER | LOC: SJCVC 10:00 | PROVIDERS: ATTEND Internal Medicine | DX: I10 Essential (primary) hypertension (principal); E11.9 Type 2 diabetes mellitus without complications; E78.5 Hyperlipidemia, unspecified; R06.02 Shortness of breath; Z86.16 Personal history of COVID-19; Z79.84 Long term (current) use of oral hypoglycemic drugs; Z79.899 Other long term (current) drug therapy; Z88.8 Allergy status to other drugs, medicaments and biological substances ==

== ENCOUNTER → 2021-04-02 | Outpatient (CLI) | payer OTHER | LOC: SJCVC 13:00 | PROVIDERS: ATTEND Internal Medicine | DX: I10 Essential (primary) hypertension (principal); R06.02 Shortness of breath; E11.9 Type 2 diabetes mellitus without complications; E78.5 Hyperlipidemia, unspecified; R60.0 Localized edema; Z88.1 Allergy status to other antibiotic agents; Z88.8 Allergy status to other drugs, medicaments and biological substances; Z79.84 Long term (current) use of oral hypoglycemic drugs; Z79.899 Other long term (current) drug therapy; Z86.718 Personal history of other venous thrombosis and embolism; Z86.16 Personal history of COVID-19; Z86.711 Personal history of pulmonary embolism ==

== ENCOUNTER → 2021-04-30 | Outpatient (CLI) | payer OTHER | LOC: SJCVC 13:25 | PROVIDERS: ATTEND Internal Medicine | DX: I10 Essential (primary) hypertension (principal); E11.9 Type 2 diabetes mellitus without complications; E78.5 Hyperlipidemia, unspecified; R55 Syncope and collapse; Z86.16 Personal history of COVID-19; Z88.8 Allergy status to other drugs, medicaments and biological substances; Z79.84 Long term (current) use of oral hypoglycemic drugs; Z79.899 Other long term (current) drug therapy ==

== ENCOUNTER → 2021-06-20 | Outpatient (CLI) | payer OTHER | LOC: SJCVC 13:07 | PROVIDERS: ATTEND Internal Medicine | DX: E78.00 Pure hypercholesterolemia, unspecified (principal); I10 Essential (primary) hypertension; E11.9 Type 2 diabetes mellitus without complications; E78.5 Hyperlipidemia, unspecified; Z88.1 Allergy status to other antibiotic agents; Z86.16 Personal history of COVID-19; Z79.899 Other long term (current) drug therapy ==

== ENCOUNTER → 2021-07-22 | Outpatient (CLI) | payer OTHER | LOC: SJCVC 14:30 | PROVIDERS: ATTEND Internal Medicine | DX: E78.00 Pure hypercholesterolemia, unspecified (principal); E78.5 Hyperlipidemia, unspecified; I10 Essential (primary) hypertension; E11.9 Type 2 diabetes mellitus without complications; Z86.16 Personal history of COVID-19; Z88.8 Allergy status to other drugs, medicaments and biological substances; Z79.84 Long term (current) use of oral hypoglycemic drugs; Z79.899 Other long term (current) drug therapy ==

== ENCOUNTER → 2021-10-15 | Outpatient (CLI) | payer OTHER | LOC: MRI 10:08 | PROVIDERS: ATTEND Nurse Practitioner | DX: G93.89 Other specified disorders of brain (principal); R42 Dizziness and giddiness ==